=== PATIENT | female | born 1985 ===

== ENCOUNTER 2019-03-30 21:21 | Emergency (ER) ==
--- NOTE | 2019-03-30 22:53 | RADIOLOGY REPORT (SQ) ---
3 VIEWS OF LEFT ANKLE EXAM DATE: 03/30/2019 12:00 AM CDT HISTORY: fell, unable to bear wt w/o severe pain. COMPARISON: None. FINDINGS: The ankle mortise is preserved on these nonstress views. No acute fracture is seen. There is moderate surrounding soft tissue swelling. No radiopaque foreign body is identified. IMPRESSION: No acute fracture or malalignment. Moderate soft tissue swelling.
== END 2019-03-31 00:30 | disposition left against medical advice (07) ==
LOC: ER 21:21
DX: Z53.21 Procedure and treatment not carried out due to patient leaving prior to being seen by health care provider (principal); M25.572 Pain in left ankle and joints of left foot